=== PATIENT | female | born 1950 | race Caucasian/White ===

== ENCOUNTER 2019-04-16 09:25 | Emergency (ER) | payer MEDICARE ==
[2019-04-16 09:50] VITALS: BP 134/83
--- NOTE | 2019-04-16 11:54 | UC ---
Hand/Wrist HPI - HPI Summary HPI Summary: Patient is a 69-year-old female presenting with left hand pain 1 week after she slammed it in a door house. Denies any swelling or bruising of the hand but states when she puts pressure on her hand it feels like her bony is bruised. Denies radiating pain. Does note mild swelling in her fifth and fourth digits. Denies decreased range of motion. Denies numbness and tingling. Notes 10/10 sharp pain when she hits her hand on something or puts pressure on it. Denies pain at rest. - History Of Current Complaint Chief Complaint: UCUpperExtremity Stated Complaint: SLAMMED LEFT HAND IN DOOR, SWELLING Hx Obtained From: Patient Onset/Duration: Sudden Onset, Lasting Weeks Severity Currently: Severe Pain Intensity: 10 Pain Scale Used: 0-10 Numeric - Allergies/Home Medications Allergies/Adverse Reactions: Allergies Allergy/AdvReac Type Severity Reaction Status Date / Time buspirone [From BuSpar] Allergy Nausea Verified 04/16/19 09:56 celecoxib [From Celebrex] Allergy Hives Verified 04/16/19 09:56 cephalexin [From Keflex] Allergy Nausea Verified 04/16/19 09:56 diazepam [From Valium] Allergy Nausea Verified 04/16/19 09:56 gabapentin Allergy severe Verified 04/16/19 09:56 migraines morphine Allergy Vomiting Verified 04/16/19 09:56 nabumetone [From Relafen] Allergy Nausea Verified 04/16/19 09:56 Sulfa (Sulfonamide Allergy visual prob Verified 04/16/19 09:56 Antibiotics) tapentadol [From Nucynta] Allergy hallucinati Verified 04/16/19 09:56 on Tetracyclines Allergy thrush Verified 04/16/19 09:56 Home Medications: Home Medications Simvastatin [Zocor 5 MG-] 1 tab PO DAILY 04/16/19 [History Confirmed 04/16/19] PMH/Surg Hx/FS Hx/Imm Hx Endocrine History: Dyslipidemia - Surgical History Surgical History: Yes Surgery Procedure, Year, and Place: T&A/LT KNEE MENISCUS REPAIR/TUBAL LIGATION/ LEFT OLECRANON REPAIR/ARTHROSCOPY RT KNEE/CARPAL TUNNEL LT AND RT/RT TRIGGER FINGER RELEASE X2/BILATERAL BREAST AUGMENTATION - Family History Known Family History: Positive: Non-Contributory - Social History Occupation: Employed Full-time Alcohol Use: Occasionally Substance Use Type: None Smoking Status (MU): Light Every Day Tobacco Smoker Review of Systems All Other Systems Reviewed And Are Negative: No Constitutional: Positive: Negative Skin: Negative: Bruising Respiratory: Positive: Negative Cardiovascular: Positive: Negative Neurovascular: Positive: Negative. Negative: Decreased Sensation Musculoskeletal: Positive: Arthralgia - L hand, Edema - L 4th, 5th fingers. Negative: Decreased ROM Neurological: Negative: Paresthesia, Numbness Physical Exam Triage Information Reviewed: Yes Appearance: Well-Appearing, No Pain Distress, Well-Nourished Vital Signs: Initial Vital Signs Temp 98.3 F 04/16/19 09:47 Pulse 80 04/16/19 09:47 Resp 17 04/16/19 09:47 BP 134/83 04/16/19 09:47 Pulse Ox 100 04/16/19 09:47 Vital Signs Reviewed: Yes Eyes: Positive: Conjunctiva Clear ENT: Positive: Hearing grossly normal Neck: Positive: Supple Respiratory: Positive: No respiratory distress Cardiovascular: Positive: Pulses Normal - strong radial pulses, Brisk Capillary Refill Musculoskeletal: Positive: Strength Intact, ROM Intact, Edema @ - mild edema of proximal phalanx of L 4th and 5th fingers, Other: - pain with palpation of 5th metacarpal Neurological Exam: Other - sensation grossly intact Neurological: Positive: Alert Psychological: Positive: Age Appropriate Behavior Skin Exam: Normal - No erythema or ecchymosis Diagnostics - Radiology L hand Radiology Interpretation Completed By: Radiologist Summary of Radiographic Findings: IMPRESSION: 1. OSTEOARTHRITIS. 2. OSTEOPENIA. 3. NO ACUTE OSSEOUS INJURY. IF SYMPTOMS PERSIST, RECOMMEND REPEAT IMAGING. Hand/Wrist Course/Dx - Course Course Of Treatment: Discussed negative hand x-rays with patient. Instructed to continue the symptomatic treatment including use of the hand splint that she states she has at home. Instructed her to follow up with her orthopedic doctor if pain is not resolved within a week or so. Patient voiced understanding and agreed with treatment plan. - Differential Dx/Diagnosis Provider Diagnosis: Left hand pain Discharge ED - Sign-Out/Discharge Documenting (check all that apply): Patient Departure All imaging exams completed and their final reports reviewed: Yes - Discharge Plan Condition: Stable Disposition: HOME Patient Education Materials: Arthralgia (ED) Referrals: Aden Armenta MD [Primary Care Provider] - If Needed Additional Instructions: As discussed, the xrays of the hand did not show any fractures. Rest, ice, elevate, and use your hand splint to help relieve pain. You may also use over the counter pain medications as directed for pain relief. If pain does not resolve, follow up with your PCP or orthopedics as listed below. Return or go to the emergency room if pain worsens, the hand becomes cold and numb, or you are unable to move the wrist or hand. - Billing Disposition and Condition Condition: STABLE Disposition: Home
== END 2019-04-16 12:14 | disposition home or self-care (01) ==
LOC: UCEAST 09:25
DX: M79.642 Pain in left hand (principal); E78.5 Hyperlipidemia, unspecified; F17.290 Nicotine dependence, other tobacco product, uncomplicated; M19.042 Primary osteoarthritis, left hand; M85.842 Other specified disorders of bone density and structure, left hand; Z88.8 Allergy status to other drugs, medicaments and biological substances; Z88.1 Allergy status to other antibiotic agents; Z88.5 Allergy status to narcotic agent; Z88.2 Allergy status to sulfonamides; Z88.6 Allergy status to analgesic agent; Z79.899 Other long term (current) drug therapy
CPT/HCPCS: 99211; G0463